=== PATIENT | male | born 1965 | race Caucasian/White ===

== ENCOUNTER 2019-05-27 12:43 | Day surgery (SDC) | payer OTHER ==
[2019-05-27] VITALS (10 sets, daily range): BP systolic 105–132; BP diastolic 58–86; PULSE 70–78; RESP 15–18; Ht 162.6 cm; Wt 95.5 kg
[~2019-05-27] VITALS: Ht 162.6 cm; Wt 95.5 kg
[2019-05-27] MEDS ORDERED: CEFAZOLIN 2 GM/50 ML (PMX) 50 ML IVPB SCH (13:30)
[2019-05-27] MEDS ORDERED: SOD CHLORIDE 0.9% 1,000 ML IV SCH (13:30)
--- NOTE | 2019-05-27 15:41 | PREAC ---
Date/Time of Note Date/Time of Note DATE: 05/27/19 TIME: 15:38 Anesthesia Eval and Record Evaluation Time Pre-Procedure Interview DATE: 05/27/19 TIME: 15:38 Age 54 Sex male NPO: 8 hrs water this morning 8a Preoperative diagnosis scalp mass left superior Planned procedure Excision scalp mass, left superior scalp Past Medical History Past Medical History: Includes GI: Obesity Surgery & Anesthesia Issues No known issue Meds Anticoagulation: No Beta Jacobo within 24 hr: No Reason Beta Jacobo not given: Pt. not on B-Jacobo No Active Prescriptions or Reported Meds Current Medications Cefazolin Sodium/ Dextrose 50 ml @ 100 mls/hr ONCE IVPB ; Start 05/27/19 at 13:30; Stop 05/27/19 at 18:30 Sodium Chloride 1,000 ml @ 75 mls/hr [id number] IV Last administered on 05/27/19at 13:19; Admin Dose 75 MLS/HR; Start 05/27/19 at 13:30 Meds reviewed: Yes Allergies Coded Allergies: No Known Allergy (Unverified , 05/27/19) Allergies Reviewed: Yes Labs/Studies Labs Reviewed: Reviewed by anesthesiologist Result Diagram: 05/27/19 1315 05/27/19 1315 Laboratory Tests 05/27/19 13:15 test: N/A Pre-procedure Exam Last vitals Vital Signs Date Temp Pulse Resp B/P (MAP) Pulse Ox O2 O2 Flow FiO2 Time Delivery Rate 05/27/19 98.2 73 16 128/86 97 Room Air 13:33 (100) Airway: Adequate mouth opening Mallampati: Mallampati II Teeth: Normal Lung: Normal Heart: Normal ASA Physical Status ASA physical status: 2 Emergency: None Planned Anesthetic General/MAC: LMA Pre-operative Attestations Prior to commencing anesthesia and surgery, the patient was re-evaluated, there was verification of: *The patient's identity *The results of appropriate recent lab work and preoperative vital signs *The above evaluation not changing prior to induction *Anesthetic plan, risk benefits, alternative and complications discussed with patient/family; questions answered; patient/family understands, accepts and wishes to proceed. ABIMAEL HERNANDEZ MD May 27, 2019 15:40
[2019-05-27] MEDS ORDERED: BUPIVACAINE 0.25%/EPI (SDV) 30 ML INJ ONE (15:46)
[2019-05-27] MEDS ORDERED: KETOROLAC 30 MG INJ IV PRN (16:00)
[2019-05-27] MEDS ORDERED: ONDANSETRON 4 MG INJ IV PRN ×2 (16:00→16:30)
[2019-05-27] MEDS ORDERED: HYDROmorphONE 1 MG/5 ML IV SYRINGE IV PRN ×2 (16:00)
[2019-05-27] MEDS ORDERED: MIDAZOLAM 1 MG/ML 2 ML INJ ONE (16:01)
[2019-05-27] MEDS ORDERED: CEFAZOLIN 1 GM INJ ONE (16:01)
[2019-05-27] MEDS ORDERED: FENTAnyl 50 MCG/ML VIAL ONE (16:01)
[2019-05-27] MEDS ORDERED: LIDOCAINE 1%/EPI 30 ML INJ ONE (16:06)
[2019-05-27] MEDS ORDERED: BACITRACIN 0.9 GM OINT ONE (16:15)
--- NOTE | 2019-05-27 16:24 | OPR ---
Date/Time of Note Date/Time of Note DATE: 05/27/19 TIME: 16:20 Operative Report Procedure Date: May 27, 2019 Preoperative Diagnosis Posterior scalp mass Postoperative Diagnosis Posterior scalp mass Operation/Procedure Performed Excision of posterior scalp mass Surgeon see signature line Professional System Administrator None Anesthesia Type: MAC Anesthesiologist: ABIMAEL HERNANDEZ MD Estimated Blood Loss: minimal Transfusion none Specimen Scalp mass Grafts/Implants none Complications none Pt Condition Post Procedure: stable Disposition: PACU Indications Patient is a 54-year-old Kiswahili-speaking male who presented to the office complaining of a posterior scalp mass. He reported growth. He was scheduled for excision for symptom relief and definitive pathological diagnosis. All risks and benefits of the procedure including, but not limited to: Wound infection, excessive bleeding, mass recurrence, etc. were all explained to the patient in full detail. The patient fully understood and wished to proceed with the procedure. Informed consent was obtained Procedure Description Patient was brought to the operating room and placed supine on the operating table. Bilateral sequential compression devices were placed on both lower extremities. A dose of broad-spectrum perioperative intravenous antibiotics was given. The mass of the posterior scalp was preoperatively marked and confirmed with the patient in the holding area. After adequate sedation was achieved the scalp was then prepped and draped in standard surgical fashion. After performance of surgical timeout 1% lidocaine with epinephrine was injected over the area of the polypoid epithelial lesion of the scalp. The mass was then transected at its base using a 15 blade scalpel and passed off the field the specimen. Was approximately 7 mm in maximal dimension. The base was then cauterized and hemostasis obtained. Bacitracin ointment was then applied. Patient was then transferred to the recovery room in stable condition. All counts were correct at the end of the case x2 RUFINO JOHNSON MD May 27, 2019 16:24
[2019-05-27] MEDS ORDERED: IBUPROFEN 600 MG TAB PO PRN (16:30)
--- NOTE | 2019-05-27 16:43 | PAC ---
Date/Time of Note Date/Time of Note DATE: 05/27/19 TIME: 16:42 Post-Anesthesia Notes Post-Anesthesia Note Last documented vital signs Vital Signs Date Temp Pulse Resp B/P (MAP) Pulse Ox O2 O2 Flow FiO2 Time Delivery Rate 05/27/19 75 18 109/61 98 Room Air 16:33 (77) 05/27/19 98.4 16:32 Activity: WNL Respiratory function: WNL Cardiovascular function: WNL Mental status: Baseline Pain reasonably controlled: Yes Hydration appropriate: Yes Nausea/Vomiting absent: Yes ABIMAEL HERNANDEZ MD May 27, 2019 16:42
== END 2019-05-27 18:00 | disposition home or self-care (01) ==
LOC: SDS 12:43
PROVIDERS: ATTEND Surgery
DX: D18.01 Hemangioma of skin and subcutaneous tissue (principal); E66.01 Morbid (severe) obesity due to excess calories
CPT/HCPCS: 21011; 80053; 85025; 85610; 85730; J0690; J2250; J3010; Z7512; Z7610; 88307